=== PATIENT | male | born 1950 | race Caucasian/White ===

== ENCOUNTER 2020-11-06 14:51 | Outpatient (CLI) | payer MEDICARE, BC ==
[2020-11-06] MEDS ORDERED: VISIPAQUE 320 MG/ML, 150ML BOTTLE ONE (15:45)
== END 2020-11-06 23:59 | disposition home or self-care (01) ==
LOC: CVU 14:51 → RAD 14:51
PROVIDERS: ATTEND Internal Medicine Cardiovascular Disease
DX: Z01.810 Encounter for preprocedural cardiovascular examination (principal); K44.9 Diaphragmatic hernia without obstruction or gangrene; K57.30 Diverticulosis of large intestine without perforation or abscess without bleeding; I65.23 Occlusion and stenosis of bilateral carotid arteries; I35.0 Nonrheumatic aortic (valve) stenosis; R06.02 Shortness of breath; M51.36 Other intervertebral disc degeneration, lumbar region; I70.0 Atherosclerosis of aorta
CPT/HCPCS: 71275; 74174; 93880; Q9967

== ENCOUNTER 2020-11-12 09:03 | Day surgery (SDC) | payer MEDICARE, BC ==
[~2020-11-12] VITALS: Ht 182.9 cm; Wt 120.0 kg
[2020-11-12] MEDS ORDERED: ATOR40TA PO (09:36)
[2020-11-12 10:26] LABS: BASOPHILS % (AUTO) 1 % (0-1); EOSINOPHILS % (AUTO) 4 % (1-7); LYMPHOCYTES % (AUTO) 22 % (22-44); MEAN CORPUSCULAR HEMOGLOBIN 33.2 pg (27.5-34.5); MEAN CORPUSCULAR HGB CONC 34.2 g/dL (33.2-36.2); MEAN PLATELET VOLUME 8.5 fL (7.4-10.4); MONOCYTES % (AUTO) 9 % (2-9); NEUTROPHILS % (AUTO) 65 % (42-75); PLATELET COUNT 193 x10^3/uL (130-400); RED BLOOD COUNT 4.87 x10^6/uL (4.38-5.82); RED CELL DISTRIBUTION WIDTH 13.5 % (9.4-14.8)
[2020-11-12 10:32] LABS: MD NO
[2020-11-12 10:39] LABS: ANION GAP 7 mmol/L (5-15); CALCIUM 9.1 mg/dL (8.5-10.1); CHLORIDE 109 mmol/L (98-107); CREATININE 0.98 mg/dL (0.7-1.3)
[2020-11-12] MEDS ORDERED: SODIUM CHLORIDE 0.9% 1,000 ML IV SCH ×2 (11:00→13:30)
[2020-11-12] MEDS ORDERED: VERAPAMIL 2.5 MG/ML, 2ML ONE (12:26)
[2020-11-12] MEDS ORDERED: MIDAZOLAM 1 MG/ML, 5ML ONE (12:26)
[2020-11-12] MEDS ORDERED: TICAGRELOR 90 MG TABLET ONE (12:26)
[2020-11-12] MEDS ORDERED: FENTANYL PF 100 MCG/2ML ONE (12:26)
[2020-11-12] MEDS ORDERED: LIDOCAINE-MPF 1%, 5ML ONE (12:26)
[2020-11-12] MEDS ORDERED: HEPARIN 1,000 UNITS/ML, 10ML ONE (12:26)
[2020-11-12] MEDS ORDERED: BIVALIRUDIN 250 MG ONE (12:26)
== END 2020-11-12 15:28 | disposition home or self-care (01) ==
LOC: CACL 09:03
PROVIDERS: ATTEND Internal Medicine Cardiovascular Disease
DX: I35.0 Nonrheumatic aortic (valve) stenosis (principal); I45.10 Unspecified right bundle-branch block; E78.2 Mixed hyperlipidemia; Z87.891 Personal history of nicotine dependence; Z98.890 Other specified postprocedural states; Z79.899 Other long term (current) drug therapy; Z72.89 Other problems related to lifestyle; Z82.49 Family history of ischemic heart disease and other diseases of the circulatory system; Z83.3 Family history of diabetes mellitus
CPT/HCPCS: 36415; 80048; 85025; 93454; 99156; 99157; C1769; C1894; J1644; J2250; J3010; Q9967; J0583

== ENCOUNTER → 2020-12-25 | Outpatient (CLI) | payer MEDICARE, BC ==
[~2020-12-25] MED LIST: ACET325T26 PO; ASPI81TA45 PO; ATOR40TA PO
== END | disposition home or self-care (01) ==
LOC: CVU 10:48
PROVIDERS: ATTEND Internal Medicine Cardiovascular Disease
DX: Z01.810 Encounter for preprocedural cardiovascular examination (principal); I65.29 Occlusion and stenosis of unspecified carotid artery; I34.8 Other nonrheumatic mitral valve disorders; Z95.2 Presence of prosthetic heart valve
CPT/HCPCS: 93306